=== PATIENT | female | born 1975 | race Two or more races ===

== ENCOUNTER 2025-03-06 13:50 | Emergency (ER) | payer OTHER, SELFPAY ==
[2025-03-06 13:57] VITALS: BP 112/72; RESP 18; TEMP 36.7; O2SAT 93
[2025-03-06 14:08] VITALS: PULSE 72; O2SAT 95
[2025-03-06 14:18] VITALS: PULSE 84; O2SAT 95
--- NOTE | 2025-03-06 14:18 | EKG_ITS ---
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1975 Requested By: Mikael Greene (CORY) Order Number: [id number] Reading MD: Mikael Greene (INSTALLATION SPECIALIST) Measurements Intervals Gleason Rate: 76 P: 34 ID: [id number] QRS: -15 QRSD: 86 T: 1 QT: 409 QTc: 462 Interpretive Statements SINUS RHYTHM LOW QRS VOLTAGE IN PRECORDIAL LEADS [QRS DEFLECTION < 1.0 mV IN CHEST LEADS] MODERATE VOLTAGE CRITERIA FOR LVH, CONSIDER NORMAL VARIANT [MEETS CRITERIA IN ONE OF: R(aVL), S(V1), R(V5), R(V5/V6)+S(V1)] POSSIBLE ANTERIOR MYOCARDIAL INFARCTION , PROBABLY OLD [30 ms Q WAVE IN V3/V4, OR R < 0.2 mV IN V4] No previous ECG available for comparison /store/S0/[id number].pdf
--- NOTE | 2025-03-06 14:18 | XR_ITS ---
Examination: CT brain head without contrast. 2-D sagittal coronal reconstructions Date and time of exam:September 06, 2024 at 1541 hours INDICATIONS: Syncopal episode today CTDI: vol (mGy):54.9 DLP: (mGycm):1056 Technique: Multiple CT axial sections of the brain have been obtained, 5 mm slice thickness. Contrast has not been administered. 2-D sagittal, coronal reconstructions have been obtained Low dose protocols were performed. One or more of the following dose reduction techniques were used; automated exposure control, adjustment of the mA and/or KV according to patient size, use of iterative reconstruction technique. Findings: No significant ventricular enlargement. Intra-axial or extra-axial hemorrhage density is not seen. No mass effect or midline shift Basal cisterns are not remarkable. Fourth ventricle is midline. Cranial vault intact. Impression: Negative for acute hemorrhage, mass effect or midline shift
--- NOTE | 2025-03-06 14:18 | XR_ITS ---
Examination: PA lateral chest 2 views TECHNIQUE: Upright PA lateral chest 2 views Date and time: March 06, 2025 1442 hours INDICATIONS: Chest pain today. FINDINGS: Poor inspiratory effort Minimal prominence left ventricle. No pneumonia or pulmonary edema IMPRESSION: Poor inspiratory effort chest x-ray
--- NOTE | 2025-03-06 14:21 | PD.EDRME ---
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
[2025-03-06 14:54] LABS: Basophils # (Auto) 0.0 Thou/mm3 (0.0-0.2); Basophils % (Auto) 0 % (0-2.5); Eosinophils # (Auto) 0.1 Thou/mm3 (0.0-0.5); Eosinophils % (Auto) 1 % (0-10); Hematocrit 34.0 % (36.0-46.0); Hemoglobin 10.5 g/dL (12.0-16.0); Immature Granulocytes Auto 0.07 Thou/mm3 (0.00-0.00); Lymphocytes # (Auto) 0.7 Thou/mm3 (1.0-4.8); Lymphocytes % (Auto) 5 % (10-50); Mean Corpuscular HGB Conc 30.9 g/dl (31.0-37.0); Mean Corpuscular Hemoglobin 22.7 pg (25.0-35.0); Mean Corpuscular Volume 73 fL (80-100); Monocytes # (Auto) 1.0 Thou/mm3 (0.0-0.8); Monocytes % (Auto) 6 % (0-12); Neutrophils # (Auto) 14.0 Thou/mm3 (1.8-7.7); Neutrophils % (Auto) 88 % (37-80); Nucleated Red Blood Cell # 0.00 Thou/mm3 (0.00-0.00); Nucleated Red Blood Cell % 0 /100 WBC (0); Platelet Count 207 Thou/mm3 (140-440); RDW Standard Deviation 45.6 fL (36.4-46.3); Red Blood Count 4.63 Miln/mm3 (4.00-5.20); White Blood Count 15.9 Thou/mm3 (3.6-11.0)
[2025-03-06 15:03] LABS: HCG,Qualitative Serum Negative
[2025-03-06 15:20] LABS: Alanine Aminotransferase 9 U/L (10-49); Albumin, Serum 4.2 gm/dL (3.5-5.0); Albumin/Globulin Ratio 1.1 (1.2-2.2); Alkaline Phosphatase 101 U/L (46-116); Anion Gap 12 (7-16); Aspartate Amino Transferase 18 U/L (0-34); BUN/Creatinine Ratio 23 Ratio (12-20); Bilirubin,Total 0.3 mg/dL (0.3-1.2); Blood Urea Nitrogen 18 mg/dL (9-23); Calcium 8.4 mg/dL (8.3-10.6); Calcium (Corrected) 8.4 mg/dL (8.5-10.1); Carbon Dioxide 21.4 mMol/L (20.0-31.0); Chloride 110 mMol/L (98-107); Creatine Kinase 76 U/L (34-171); Creatinine (Component) 0.8 mg/dL (0.6-1.3); Estimated Creatinine Clearance 101.1 mL/min (>60); Globulin 3.7 gm/dL (2.3-3.5); Glucose 131 mg/dL (74-106); Osmolality,Calculated 288 (275-295); Potassium 3.7 mMol/L (3.4-5.1); Sodium 143 mMol/L (136-145); Total Protein 7.9 gm/dL (5.7-8.2); Troponin I < 0.002 ng/mL (0.0-0.045); eGFR > 60 See Note
--- NOTE | 2025-03-06 15:33 | PD.EDSYNC ---
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 GABBI AMADOR ED EVALUATION: 49 year old female with no stated medical history presents to the ED BIBA from work for evaluation of syncopal episode today. 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 States she suddenly began to feel very hot followed by a musa of cold sensation through her body and syncopized. Reports shortly after waking she had nausea with vomiting. Patient mentioned she only had minimal water to drink today. No other associated symptoms or complaints reported. Denies fevers, chills, chest pain, cough, shortness of breath, headache, abdominal pain, diarrhea, or urinary symptoms. Related Data Allergies Allergy/AdvReac Type Severity Reaction Status Date / Time No Known Allergies Allergy Verified 03/06/25 14:07 Review of Systems Review of Systems Systems Reviewed: All systems reviewed, normal except as documented Past Medical History Social History SMOKING STATUS: Never smoker ED Exam Narrative Physical exam: Generally patient is alert and in no obvious distress. Head is normocephalic atraumatic. Neck is supple no bony deformity or tenderness noted. Heart is regular rate and rhythm. Lungs clear to auscultation equal bilaterally. Abdomen soft bowel sounds present nondistended nontender. Extremities showed no clubbing cyanosis or edema and no deformities. Neurologic exam no focal motor or sensory deficits cranial nerves II through XII grossly intact General Limitations: Present no limitations General appearance: Present alert and in no apparent distress Head Head exam: Present atraumatic, normocephalic and normal inspection Eye Eye exam: Present normal appearance, PERRL and EOMI ENT ENT exam: Present normal exam, normal oropharynx and mucous membranes moist Neck Neck exam: Present normal inspection, full ROM and trachea midline Chest Chest inspection: Present normal inspection and symmetric chest wall rise Respiratory Respiratory exam: Present normal lung sounds bilaterally Cardiovascular Cardiovascular exam: Present regular rate, normal rhythm and normal heart sounds Abdominal Exam Abdominal exam: Present soft and normal bowel sounds Extremities Exam Extremities exam: Present normal inspection and full ROM Back Exam Back exam: Present normal inspection and full ROM Neurological Exam Neurological exam: Present alert, oriented X3 and CN II-XII intact Psychiatric Psychiatric exam: Present normal affect and normal mood Skin Skin exam: Present warm, dry, intact and normal color Course Quality Measures none Orders Category Date Time Status EKG (ED ONLY) *Do not use* NOW Care 03/06/25 14:[address] head/brain wo con Stat Exams 03/06/25 14:18 Completed EKG (ED Only) Stat Exams 03/06/25 14:18 Draft XR chest 2V Stat Exams 03/06/25 14:18 Completed CBC Stat Lab 03/06/25 14:27 Completed Comprehensive Metabolic Panel Stat Lab 03/06/25 14:27 Completed Creatine Kinase Stat Lab 03/06/25 14:27 Completed HCG,Qualitative Serum Stat Lab 03/06/25 14:27 Completed Troponin I Stat Lab 03/06/25 14:27 Completed UA, C/S IF [Urinalysis, C/S if Indicated] Stat Lab 03/06/25 14:20 Ordered Vital Signs Vital signs: Vital Signs Temperature 98.1 F 03/06/25 13:57 Respiratory Rate 18 03/06/25 13:57 Blood Pressure 112/72 03/06/25 13:57 Pulse Oximetry (%) 93 L 03/06/25 13:57 Oxygen Delivery Method Room Air 03/06/25 13:57 Pulse ox is 93% on room air which is borderline low. Syncope MDM Narrative MDM Narrative:: IMaria M am scribing for and in the presence of Dr. Bruno. Patient was kept on continuous cardiac monitoring without ectopy. EKG showed normal sinus rhythm at a rate of [address] segment changes. I interpreted all labs. Prior to my evaluation a CAT scan of the brain was ordered which was negative. Patient is stable for discharge. Patient data External records reviewed:: None (No previous ED visits for review ) Clinical information provided by:: patient Social determinants that could affect healthcare access:: none Patient has the following chronic illnesses:: None reported How is presenting disease/condition affected by chronic disease/condition?: no chronic disease Evaluation data The following diagnostics were reviewed and interpreted by me:: lab results, radiology exam(s) and EKG tracing(s) Lab and/or radiology exams considered but not ordered:: none Interpretation Summary: Ordering Physician: Jc CUNNINGHAM),Mikael RAY Date of Service: 03/06/25 Procedure(s): XR chest 2V Accession Number(s): [id number] cc: Jc CUNNINGHAM),Mikael RAY; Demetris Ontiveros MD~ Examination: PA lateral chest 2 views TECHNIQUE: Upright PA lateral chest 2 views Date and time: March 06, 2025 1442 hours INDICATIONS: Chest pain today. FINDINGS: Poor inspiratory effort Minimal prominence left ventricle. No pneumonia or pulmonary edema IMPRESSION: Poor inspiratory effort chest x-ray Dictated By: Demetris Ontiveros MD Signed By: <Electronically signed by Demetris Ontiveros MD in OV> 03/06/25 1449 Medications / Prescriptions Medications or Prescriptions considered but not ordered:: None Medication administrations:: See above Consultations Consultation(s) initiated? (list below): No Diagnosis Syncope Differential Diagnosis: syncope due to orthostatic hypotension, vasovagal syncope and dehydration Most likely diagnosis given after review of the tests above:: Heat exposure Admission Indicated Admission indicated?: not indicated Admission Request Was there a request for admission?: No Disposition Plan Disposition Plan: Discharge Discharge Attestation Discharge Attestation: The patient and all family members were given an opportunity to ask questions and understood the discharge instructions. Discharge instructions specifically effects, indications for sooner follow up or return to the emergency department, and the expected course of current diagnosis. Patient condition: Stable Discharge Plan Plan Patient Disposition: HOME (Self Care) Prescriptions/Referrals Referrals: No Primary/Family,Physician [Primary Care Provider] - In 1 week Problem List Clinical Impression: Heat apoplexy Patient/Caregiver Discharge Instructions Additional Instructions: Keep well-hydrated. Keep as cool as possible when working. Print Language: Pashto Stand Alone Forms: Shirley Award Info., Patient Portal Info Letter
[2025-03-06 16:23] VITALS: BP 119/58; PULSE 75; RESP 18; TEMP 36.4; O2SAT 96
== END 2025-03-06 17:23 | disposition home or self-care (01) ==
PROVIDERS: Nurse Practitioner Primary Care; Emergency Provider Emergency Medicine
DX: T67.01XA Heatstroke and sunstroke, initial encounter (principal); R55 Syncope and collapse; R04.9 Hemorrhage from respiratory passages, unspecified
CPT/HCPCS: 36415; 70450; 71046; 80053; 81001; 82550; 84484; 84703; 85025; 93005; 99283